=== PATIENT | male | born 1950 | race Caucasian/White ===

== ENCOUNTER 2016-08-20 08:00 | Outpatient (CLI) | payer MEDICARE, OTHER | END 2016-08-20 23:59 | DX: I10 Essential (primary) hypertension (principal) ==

== ENCOUNTER 2017-01-22 10:46 | Outpatient (CLI) | payer MEDICARE, OTHER ==
--- NOTE | 2017-01-22 12:43 | XRAY Report ---
TWO-VIEW CHEST: 01/22/2017 CLINICAL INDICATION: COPD. FINDINGS: Frontal and lateral views of the chest are compared to previous films of 09/16/2015. The cardiac silhouette is within normal limits. The lungs remain hyperinflated, compatible with COPD. N o new consolidation, effusion, or pneumothorax is present. IMPRESSION: COPD, BUT NO EVIDENCE OF ACUTE CARDIOPULMONARY DISEASE. JOB #: [id number] EXT JOB #:[id number]
== END 2017-01-22 10:47 | disposition home or self-care (01) ==
LOC: DI.N 10:46
PROVIDERS: ATTEND Internal Medicine Critical Care Medicine
DX: J44.9 Chronic obstructive pulmonary disease, unspecified (principal)
CPT/HCPCS: 71020

== ENCOUNTER 2018-02-20 13:51 | Outpatient (CLI) | payer MEDICARE, OTHER ==
[2018-02-20 19:19] LABS: ALBUMIN 4.3 g/dL (3.2-5.5); ALBUMIN/GLOBULIN RATIO 1.3 (1.0-2.2); ALKALINE PHOSPHATASE 67 IU/L (42-121); ALT ALANINE AMINOTRANSFERASE 16 IU/L (10-60); AST ASPARTATE AMINOTRANSFERASE 21 IU/L (10-42); BUN - BLOOD UREA NITROGEN 9 mg/dL (6-20); CALCIUM 9.6 mg/dL (8.5-10.3); CARBON DIOXIDE - CO2 32 mmol/L (21-32); CHLORIDE 92 mmol/L (101-111); CHOL/HDL RATIO 1.7 (<5.0); CHOLESTEROL 208 mg/dL; CREATININE 0.6 mg/dL (0.6-1.2); GFR - MDRD 134 (>89); GLUCOSE 111 mg/dL (70-100); HDL CHOLESTEROL 120 mg/dL; LDL CHOLESTEROL,CALCULATED 80 mg/dL; LDL/HDL RATIO 0.7 (<3.6); SODIUM 131 mmol/L (135-145); TOTAL PROTEIN 7.5 g/dL (6.7-8.2); VLDL CHOLESTEROL 8 mg/dL
[2018-02-20 19:25] LABS: BASOPHILS % (AUTO) 0.5 %; EOSINOPHILS # (AUTO) 0.1 10^3/uL (0.0-0.7); EOSINOPHILS % (AUTO) 1.3 %; HGB - HEMOGLOBIN 14.3 g/dL (14.0-18.0); LYMPHOCYTES # (AUTO) 1.2 10^3/uL (1.5-3.5); LYMPHOCYTES % (AUTO) 20.5 %; MEAN CORPUSCULAR HEMOGLOBIN 32.6 pg (27.0-31.0); MEAN CORPUSCULAR HGB CONC 33.5 g/dL (32.0-36.0); MEAN CORPUSCULAR VOLUME 97.4 fL (80.0-94.0); MEAN PLATELET VOLUME 7.1 fL (7.4-11.4); MONOCYTES # (AUTO) 0.5 10^3/uL (0.0-1.0); MONOCYTES % (AUTO) 9.1 %; NEUTROPHILS # (AUTO) 3.9 10^3/uL (1.5-6.6); NEUTROPHILS % (AUTO) 68.6 %; PLT - PLATELET COUNT 236 10^3/uL (130-450); RED BLOOD COUNT 4.39 10^6/uL (4.70-6.10); RED CELL DISTRIBUTION WIDTH 13.2 % (12.0-15.0); WHITE BLOOD COUNT 5.6 x10^3/uL (4.8-10.8)
[2018-02-21 12:17] LABS: HEPATITIS C ANTIBODY NON-REACTIVE (NON-REACTIVE)
== END 2018-02-20 13:52 | disposition home or self-care (01) ==
LOC: LAB.WCP 13:51
PROVIDERS: ATTEND Physician Assistant Medical
DX: I10 Essential (primary) hypertension (principal); Z12.5 Encounter for screening for malignant neoplasm of prostate; J44.9 Chronic obstructive pulmonary disease, unspecified; Z11.59 Encounter for screening for other viral diseases
CPT/HCPCS: 36415; 80053; 80061; 85025; 86803; G0103; 83721; 84153

== ENCOUNTER 2018-03-14 13:46 | Emergency (ER) | payer MEDICARE, OTHER ==
[2018-03-14] MEDS ORDERED: IPRATROPIUM/ALBUTEROL 3 ML NEB INH STA (14:29)
[2018-03-14] MEDS ORDERED: DEXAMETHASONE 10 MG/ML VIAL PO STA (14:29)
--- NOTE | 2018-03-14 14:35 | ED Physician Documentation ---
PD HPI DYSPNEA - Stated complaint Stated Complaint: COUGHING/MUCUS - Chief complaint Chief Complaint: Resp - History obtained from History obtained from: Patient - History of Present Illness Timing - details: Gradual onset Similar symptoms before: Diagnosis (History of similar symptoms with pneumonia.) - Additional information Additional information: The patient is a 67-year-old male with a history of oxygen dependent COPD, who presents with productive cough and fatigue that has been gradually progressing over the past week or two. He reports dyspnea, without chest pain. He denies fever, nausea or vomiting. He has a history of similar, but worse symptoms, about 2-1/2 years ago when he was hospitalized with pneumonia. He quit smoking cigarettes about 5 years ago. Review of Systems Constitutional: reports: Fatigue. denies: Fever Nose: denies: Congestion Throat: denies: Sore throat Cardiac: denies: Chest pain / pressure Respiratory: reports: Dyspnea, Cough GI: denies: Abdominal Pain, Nausea, Vomiting : denies: Dysuria Skin: denies: Rash Musculoskeletal: denies: Back pain, Extremity swelling Neurologic: denies: Focal weakness, Numbness, Headache PD PAST MEDICAL HISTORY - Past Medical History Past Medical History: No Cardiovascular: Hypertension Respiratory: COPD Neuro: None Endocrine/Autoimmune: None GI: None : Retention, Frequency HEENT: Other Psych: None Musculoskeletal: None - Past Surgical History Past Surgical History: No /POISER: Other HEENT: Cataracts, Tonsil/Adenoidectomy - Present Medications Home Medications: Ambulatory Orders Medication Instructions Recorded Confirmed Albuterol Sulfate [Proair Hfa] 8.5 gm IH Q6H PRN 08/13/15 08/29/15 Carvedilol [Coreg] 6.25 mg PO BID 08/13/15 08/29/15 Fluticasone/Salmeterol 250/50 1 puffs INH BID 08/13/15 08/29/15 [Advair 250 Mcg/50 Mcg] Furosemide 20 mg PO BID 08/13/15 08/29/15 Lisinopril [Zestril] 40 mg PO DAILY 08/13/15 08/29/15 Potassium Chloride [Micro-K] 10 meq PO BIDWM 08/13/15 08/29/15 dilTIAZem HCl [Diltiazem 24Hr ER] 360 mg PO DAILY 08/13/15 08/29/15 Azithromycin [Zithromax] 250 mg PO DAILY #6 tablet 03/14/18 predniSONE [Prednisone] 30 mg PO DAILY #15 tablet 03/14/18 - Allergies Allergies/Adverse Reactions: Allergies Allergy/AdvReac Type Severity Reaction Status Date / Time No Known Drug Allergies Allergy Verified 03/14/18 13:56 - Social History Does the pt smoke?: No Smoking Status: Never smoker Does the pt drink ETOH?: Yes Does the pt have substance abuse?: No - Immunizations Immunizations are current?: Yes - POLST Patient has POLST: No PD ED PE NORMAL - Vitals Vital signs reviewed: Yes (Borderline systolic hypertension.) - General General: Alert and oriented X 3, Other (Body habitus of COPD, as well as dusky nose.) - HEENT HEENT: Atraumatic, Pharynx benign - Neck Neck: No adenopathy, No JVD - Cardiac Cardiac: RRR - Respiratory Respiratory: Other (Decreased breath sounds bilaterally, with prolonged exp iratory phase.) - Abdomen Abdomen: Soft, Non tender - Back Back: No CVA TTP - Derm Derm: No rash - Extremities Extremities: No edema - Neuro Neuro: Alert and oriented X 3, No motor deficit, Normal speech Results - Vitals Vitals: Oxygen O2 Source [] Nasal cannula O2 Source Nasal cannula Oxygen Flow Rate 4 - Labs Labs: Laboratory Tests 03/14/18 03/14/18 14:55 14:55 WBC 6.9 RBC 3.98 L Hgb 13.4 L Hct 37.6 L MCV 94.7 H MCH 33.7 H MCHC 35.6 RDW 13.0 Plt Count 220 MPV 6.6 L Neut # (Auto) 5.3 Lymph # (Auto) 0.7 L [place] # (Auto) 0.9 Eos # (Auto) 0.0 Baso # (Auto) 0.0 Absolute Nucleated RBC 0.00 Nucleated RBC % 0.0 Sodium 126 L Potassium 4.3 Chloride 86 L Carbon Dioxide 31 Anion Gap 9.0 BUN 11 Creatinine 0.5 L Estimated GFR (MDRD) 165 Glucose 112 H Calcium 9.1 Total Bilirubin 0.7 AST 20 ALT 15 Alkaline Phosphatase 74 Total Protein 7.4 Albumin 3.8 Globulin 3.6 Albumin/Globulin Ratio 1.1 Lipase 20 L - Rads (name of study) CXR Radiology: Prelim report reviewed, EMP read contemporaneously, See rad report (Hyperinflated lungs, consistent with emphysematous COPD. No acute findings.) PD MEDICAL DECISION MAKING - ED course Complexity details: reviewed old records, reviewed results, re-evaluated patient, considered differential, d/w patient, d/w family ED course: The patient's presentation is most consistent with an acute exacerbation of COPD. Chest x-ray does not reveal evidence of pneumonia, and his white blood cell count is normal. Treatment in the emergency department included administration of DuoNeb nebulizer and Decadron 10 mg orally. His air movement improved with the above treatment. He is being discharged with prescription for Zithromax and prednisone. I discussed with him and his outpatient treatment and follow- up, as well as potentially worrisome signs or symptoms that should prompt re evaluation in the emergency department. Departure - Departure Disposition: 01 Home, Self Care Clinical Impression: COPD exacerbation Condition: Stable Instructions: ED COPD Flare Follow-Up: Selene Gunn MD [Primary Care Provider] - Chantell Feldman PA-C [Provider Admit Priv/Credential] - Prescriptions: Azithromycin [Zithromax] 250 mg PO DAILY #6 tablet predniSONE [Prednisone] 30 mg PO DAILY #15 tablet Comments: Continue using your nebulizer and inhaler as previously prescribed. Take prednisone as prescribed for the next 5 days. Take Zithromax daily as prescribed. Follow-up with your primary physician within 1 week. Call to schedule appointment. Return to the emergency department if increasing difficulty breathing, or otherwise worsening symptoms. Discharge Date/Time: 03/14/18 15:43
--- NOTE | 2018-03-14 14:58 | XRAY Report ---
Reason: cough and dyspnea Procedure Date: 03/14/2018 Accession Number: [id number] / [id number] Procedure: XR - Chest 2 View X-Ray CPT Code: 10894 FULL RESULT: EXAM: CHEST RADIOGRAPHY EXAM DATE: 03/14/2018 02:43 PM. CLINICAL HISTORY: Cough and shortness of breath. COMPARISON: CHEST 2 VIEW PA/LAT 09/09/2015 7:53 AM. TECHNIQUE: 2 views. FINDINGS: Lungs/Pleura: Lungs are hyperinflated but clear. There is no effusion, pneumothorax, or vascular congestion. Mediastinum: Heart and mediastinal contours are notable for aortic calcification. Other: None. IMPRESSION: No acute findings. Hyperinflated lungs related to COPD changes again seen. RADIA
[2018-03-14 15:00] LABS: BASOPHILS % (AUTO) 0.4 %; EOSINOPHILS % (AUTO) 0.6 %; HGB - HEMOGLOBIN 13.4 g/dL (14.0-18.0); LYMPHOCYTES # (AUTO) 0.7 10^3/uL (1.5-3.5); LYMPHOCYTES % (AUTO) 9.6 %; MEAN CORPUSCULAR HEMOGLOBIN 33.7 pg (27.0-31.0); MEAN CORPUSCULAR HGB CONC 35.6 g/dL (32.0-36.0); MEAN CORPUSCULAR VOLUME 94.7 fL (80.0-94.0); MEAN PLATELET VOLUME 6.6 fL (7.4-11.4); MONOCYTES # (AUTO) 0.9 10^3/uL (0.0-1.0); MONOCYTES % (AUTO) 12.4 %; NEUTROPHILS # (AUTO) 5.3 10^3/uL (1.5-6.6); PLT - PLATELET COUNT 220 10^3/uL (130-450); RED BLOOD COUNT 3.98 10^6/uL (4.70-6.10); WHITE BLOOD COUNT 6.9 x10^3/uL (4.8-10.8)
[2018-03-14 15:31] VITALS: BP 136/56
[2018-03-14 15:52] LABS: ALBUMIN 3.8 g/dL (3.2-5.5); ALBUMIN/GLOBULIN RATIO 1.1 (1.0-2.2); BILIRUBIN,TOTAL 0.7 mg/dL (0.2-1.0); CALCIUM 9.1 mg/dL (8.5-10.3); CREATININE 0.5 mg/dL (0.6-1.2); TOTAL PROTEIN 7.4 g/dL (6.7-8.2)
== END 2018-03-14 15:43 | disposition home or self-care (01) ==
LOC: ED 13:46
DX: J44.1 Chronic obstructive pulmonary disease with (acute) exacerbation (principal); Z99.81 Dependence on supplemental oxygen; I10 Essential (primary) hypertension
CPT/HCPCS: 36415; 71046; 80053; 83690; 85025; 94640; 99283

== ENCOUNTER 2020-02-07 09:24 | Outpatient (CLI) | payer MEDICARE, OTHER | END 2020-02-07 09:25 | disposition critical access hospital (66) | LOC: EMS 09:24 | PROVIDERS: ATTEND Surgery | DX: R06.03 Acute respiratory distress (principal) | CPT/HCPCS: A0425; A0427 ==

== ENCOUNTER 2020-02-07 10:09 | Inpatient (IN) | payer MEDICARE, OTHER ==
[2020-02-07] MEDS ORDERED: SODIUM CHLORIDE 0.9% 1,000 ML IV STA (10:19)
[2020-02-07] MEDS ORDERED: MORPHINE 2 MG/ML CARPUJECT IVP STA (10:20)
[2020-02-07] MEDS ORDERED: MAGNESIUM SULFATE 2 GRAM 2 GM/50 ML BAG IV ONE (10:20)
[2020-02-07] MEDS ORDERED: IPRATROPIUM/ALBUTEROL 3 ML NEB INH STA (10:21)
[2020-02-07] MEDS ORDERED: DEXAMETHASONE 10 MG/ML VIAL IVP STA (10:21)
[2020-02-07 10:36] LABS: BASOPHILS # (AUTO) 0.1 10^3/uL (0.0-0.1); BASOPHILS % (AUTO) 0.4 %; EOSINOPHILS # (AUTO) 0.5 10^3/uL (0.0-0.7); EOSINOPHILS % (AUTO) 2.7 %; HGB - HEMOGLOBIN 12.7 g/dL (14.0-18.0); LYMPHOCYTES # (AUTO) 1.2 10^3/uL (1.5-3.5); LYMPHOCYTES % (AUTO) 6.3 %; MEAN CORPUSCULAR HEMOGLOBIN 33.2 pg (27.0-31.0); MEAN CORPUSCULAR VOLUME 94.8 fL (80.0-94.0); MEAN PLATELET VOLUME 8.8 fL (7.4-11.4); MONOCYTES # (AUTO) 1.7 10^3/uL (0.0-1.0); MONOCYTES % (AUTO) 9.4 %; NEUTROPHILS # (AUTO) 14.7 10^3/uL (1.5-6.6); NEUTROPHILS % (AUTO) 80.4 %; PLT - PLATELET COUNT 291 10^3/uL (130-450); RED BLOOD COUNT 3.83 10^6/uL (4.70-6.10); RED CELL DISTRIBUTION WIDTH 11.7 % (12.0-15.0); WHITE BLOOD COUNT 18.3 x10^3/uL (4.8-10.8)
[2020-02-07] MEDS ORDERED: cefTRIAXone 1 GM VIAL IVP STA (10:46)
[2020-02-07] MEDS ORDERED: AZITHROMYCIN INJ 500 MG in SODIUM CHLORIDE 0.9% 250 ML IV STA (10:47)
[2020-02-07 10:50] LABS: ALBUMIN 3.9 g/dL (3.2-5.5); BILIRUBIN,TOTAL 1.5 mg/dL (0.2-1.0); CALCIUM 9.6 mg/dL (8.5-10.3); CREATININE 0.9 mg/dL (0.6-1.2); MAGNESIUM 1.9 mg/dL (1.7-2.8); TOTAL PROTEIN 7.8 g/dL (6.7-8.2)
[2020-02-07 10:59] LABS: PLATELET ESTIMATE, MANUAL NORMAL (130-450,000) (NORMAL); PLATELET MORPHOLOGY NORMAL APPEARANCE (NORMAL); RBC MORPHOLOGY (MULTIPLE) NORMAL APPEARANCE (NORMAL)
--- NOTE | 2020-02-07 10:59 | XRAY Report ---
PROCEDURE: Chest 1 View X-Ray INDICATIONS: chest pain TECHNIQUE: One view of the chest was acquired. COMPARISON: 03/14/2018, 08/17/2017, 01/22/2017. FINDINGS: Surgical changes and devices: None. Lungs and pleura: There is persistent blunting of the costophrenic angles, which is attributed to sca rring. There is mild generalized interstitial prominence seen within the right lung. No pneumothorax is seen. The lungs are hyperexpanded. Mediastinum: The aorta is prominent and tortuous. The cardiac contours are within normal limits. Bones and chest wall: No suspicious bony lesions. Age-appropriate degenerative changes are seen. Overlying soft tissues appear unremarkable. IMPRESSION: Diffuse interstitial prominence is seen on the right side. Please consider infection. Asymmetric pulm onary edema or inflammatory change are considered to be less likely. Hyperexpanded lungs. Reviewed by: Hermes Street MD on 02/07/2020 9:58 AM [facility] Approved by: Hermes Street MD on 02/07/2020 9:58 AM [facility] Station ID: [id number]
[2020-02-07 11:05] LABS: ABG HCO3 31.5 mmol/L (22.0-26.0); ABG PO2 68 mmHg (80-100)
[2020-02-07 11:06] LABS: ABG BASE EXCESS 0.8 mmol/L (-2.0-3.0); ABG OXYGEN SATURATION 90 % (94-98); ABG TCO2 34.1 MMOL/L (21.0-29.0); ALLEN TEST POSITIVE
[2020-02-07 11:07] LABS: ABG PCO2 86 mmHg (34-45); ABG PH 7.18 (7.35-7.45)
[2020-02-07] MEDS ORDERED: oxyCODONE 5 MG TABLET PO PRN (11:21)
[2020-02-07] MEDS ORDERED: SODIUM CHLORIDE FLUSH 0.9% 10 ML SYRINGE IVP PRN (11:21)
[2020-02-07] MEDS ORDERED: ONDANSETRON ODT 4 MG TABLET TL PRN (11:21)
[2020-02-07] MEDS ORDERED: ACETAMINOPHEN 325 MG TABLET PO PRN (11:21)
[2020-02-07] MEDS ORDERED: ONDANSETRON 4 MG/2 ML VIAL IVP PRN (11:21)
[2020-02-07] MEDS ORDERED: ALBUTEROL NEB 2.5 MG/3 ML INH PRN (11:24)
--- NOTE | 2020-02-07 11:26 | ED Physician Documentation ---
PD HPI DYSPNEA - Stated complaint Stated Complaint: SOA - Chief complaint Chief Complaint: Resp - History obtained from History obtained from: Patient, Family, EMS - History of Present Illness Timing - onset: How many days ago (He has had several days to a week of progressively worsening dyspnea with some cough and worsened wheezing. History of COPD. Increased his home oxygen from 3.5-5. Denies sputum production per se. Had significantly worse symptoms overnight into today.) Timing - onset during: Rest, Light activity Timing - duration: Days (several days to a week, with significant worsening since yesterday.) Timing - details: Gradual onset, Still present Inciting event(s): URI, Exposure (ie smoke) (environmental poor air quality.), Other (COPD) Improved by: O2, Inhaler/neb Associated symptoms: Cough, Wheezing, Chest pain / discomfort, Anxiety. No: Fever, Palpitations, Bilateral edema Similar symptoms before: Diagnosis (COPD exacerbations) Recently seen: Not recently seen Review of Systems Constitutional: reports: Myalgias. denies: Fever, Chills Nose: reports: Congestion. denies: Rhinorrhea / runny nose Throat: denies: Sore throat Cardiac: reports: Chest pain / pressure. denies: Palpitations, Pedal edema, Calf pain Respiratory: reports: Dyspnea, Cough, Wheezing. denies: Hemoptysis GI: denies: Abdominal Pain, Nausea, Vomiting, Diarrhea Neurologic: reports: Generalized weakness. 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: Other HEENT: Cataracts, Tonsil/Adenoidectomy - Present Medications Home Medications: Ambulatory Orders Medication Instructions Recorded Confirmed Albuterol Sulfate [Proair Hfa] 2 - 4 inh IH Q6H PRN 08/13/15 02/07/20 Carvedilol [Coreg] 6.25 mg PO BID 08/13/15 02/07/20 Fluticasone/Salmeterol 250/50 1 puffs INH BID 08/13/15 02/07/20 [Advair 250 Mcg/50 Mcg] Furosemide 20 mg PO BID 08/13/15 02/07/20 Lisinopril [Zestril] 40 mg PO DAILY 08/13/15 02/07/20 Potassium Chloride [Micro-K] 10 meq PO BIDWM 08/13/15 02/07/20 dilTIAZem HCl [Diltiazem 24Hr ER] 360 mg PO DAILY 08/13/15 02/07/20 Aclidinium [place] [Tudorza 1 inh PO DAILY 02/07/20 02/07/20 Pressair] Levalbuterol [Xopenex] 1 inh NEB Q6H PRN 02/07/20 02/07/20 predniSONE [Prednisone] 30 mg PO DAILY PRN 02/07/20 02/07/20 - Allergies Allergies/Adverse Reactions: Allergies Allergy/AdvReac Type Severity Reaction Status Date / Time No Known Drug Allergies Allergy Verified 02/07/20 10:21 - Social History Does the pt smoke?: No Smoking Status: Never smoker Does the pt drink ETOH?: Yes Does the pt have substance abuse?: No - Immunizations Immunizations are current?: Yes - POLST Patient has POLST: No PD ED PE NORMAL - Vitals Vital signs reviewed: Yes - General General: Well developed/nourished, Other (Thin and decreased muscle mass general ly. He has prolonged expiratory phase and work of breathing. He does appear anxious.) - HEENT HEENT: Atraumatic, Pharynx benign. No: Moist mucous membranes - Neck Neck: Supple, no meningeal sign, No adenopathy - Cardiac Cardiac: RRR, No murmur - Respiratory Respiratory: Other (Is and prolonged expiratory phase. Some coarse sounds on the right. Accessory muscle use and tachypnea.) - Abdomen Abdomen: Soft, Non tender - Male Male : Deferred - Rectal Rectal: Deferred - Back Back: No CVA TTP - Derm Derm: Normal color, Warm and dry - Extremities Extremities: No tenderness to palpate, Normal ROM s pain, No edema, No calf tenderness / cord - Neuro Neuro: Alert and oriented X 3, No motor deficit. No: Normal speech (few word conversational dyspnea. ) Results - Vitals Vitals: Vital Signs - 24 hr 02/07/20 02/07/20 02/07/20 10:10 10:24 10:27 Temperature 36.2 C L Heart Rate 94 96 92 Respiratory 28 H Rate Blood Pressure 158/66 H O2 Saturation 93 02/07/20 02/07/20 02/07/20 10:33 11:29 11:30 Temperature 36.2 C L Heart Rate 84 79 79 Respiratory 18 18 Rate Blood Pressure O2 Saturation 93 Oxygen O2 Source [With Activity] Nasal cannula O2 Source BIPAP - EKG (time done) 10:12 Rate: Rate (enter#) (91) Rhythm: NSR [employer]: Normal Intervals: Normal NC QRS: Normal Ischemia: Normal ST segments, Non specific changes. No: ST elevation c/w ischemia, ST depression - Labs Labs: Laboratory Tests 02/07/20 02/07/20 02/07/20 10:30 10:30 10:30 WBC 18.3 H RBC 3.83 L Hgb 12.7 L Hct 36.3 L MCV 94.8 H MCH 33.2 H MCHC 35.0 RDW 11.7 L Plt Count 291 MPV 8.8 Neut # (Auto) 14.7 H Lymph # (Auto) 1.2 L [place] # (Auto) 1.7 H Eos # (Auto) 0.5 Baso # (Auto) 0.1 Absolute Nucleated RBC 0.00 Nucleated RBC % 0.0 Manual Slide Review Indicated WBC Morphology Platelet Estimate NORMAL (130-450,000) Platelet Morphology NORMAL APPEARANCE RBC Morph Micro Appear NORMAL APPEARANCE Bld Gas Analysis Time Sample Site ABG pH ABG pCO2 ABG pO2 ABG HCO3 ABG Total CO2 ABG O2 Saturation ABG Base Excess Mykel Test O2 Delivery Device FiO2 EPAP IPAP Sodium 122 L Potassium 4.4 Chloride 73 L* Carbon Dioxide 35 H Anion Gap 14.0 H BUN 32 H Creatinine 0.9 Estimated GFR (MDRD) 83 L Glucose 107 H Calcium 9.6 Magnesium 1.9 Total Bilirubin 1.5 H AST 21 ALT 19 Alkaline Phosphatase 61 B-Natriuretic Peptide 59 Total Protein 7.8 Albumin 3.9 Globulin 3.9 Albumin/Globulin Ratio 1.0 Lipase 20 L 02/07/20 11:00 WBC RBC Hgb Hct MCV MCH MCHC RDW Plt Count MPV Neut # (Auto) Lymph # (Auto) [place] # (Auto) Eos # (Auto) Baso # (Auto) Absolute Nucleated RBC Nucleated RBC % Manual Slide Review WBC Morphology Platelet Estimate Platelet Morphology RBC Morph Micro Appear Bld Gas Analysis Time 1100 Sample Site LEFT BRACHIAL ABG pH 7.18 L* ABG pCO2 86 H* ABG pO2 68 L ABG HCO3 31.5 H ABG Total CO2 34.1 H ABG O2 Saturation 90 L ABG Base Excess 0.8 Mykel Test POSITIVE O2 Delivery Device BiPAP FiO2 35.00 EPAP 5 IPAP 12 Sodium Potassium Chloride Carbon Dioxide Anion Gap BUN Creatinine Estimated GFR (MDRD) Glucose Calcium Magnesium Total Bilirubin AST ALT Alkaline Phosphatase B-Natriuretic Peptide Total Protein Albumin Globulin Albumin/Globulin Ratio Lipase - Rads (name of study) chest xray Radiology: Prelim report reviewed (Sided interstitial infiltrate consistent with pneumonia), See rad report PD MEDICAL DECISION MAKING - ED course Complexity details: reviewed results, re-evaluated patient (Having improved work of breathing but does not seem to be tiring. Respiratory rate and depth is seems adequate. He remains on the BiPAP. Sats are good. Can increase inspiratory pressure since ABG is abnormal. ), considered differential, d/w patient ED course: I affirmed with the patient DNR/DNI. He is okay with BiPAP. He did express some potential preference for [facility] but I told him he is somewhat unstable at this point and [facility] is not a higher level of care per se so I asked if he was okay staying here and he said yes he is. - Critical Care Time Includes: Direct patient care, Reassess patient, Document care, Medical consult Data interpretation: Labs, Pulse ox, ABG, CXR Procedures excluded from critical care time: EKG Departure - Departure Disposition: 66 [facility] DC/Xfer Clinical Impression: Acute pneumonia, COPD exacerbation, Respiratory distress Dyspnea Qualifiers: Dyspnea type: shortness of breath Qualified Code(s): R06.02 - Shortness of breath Condition: Stable Record reviewed to determine appropriate education?: Yes Discharge Date/Time: 02/07/20 12:17
[2020-02-07] MEDS ORDERED: ALBUTEROL NEB 2.5 MG/3 ML INH STA (11:30)
[2020-02-07] MEDS ORDERED: LACTATED RINGERS 1,000 ML IV SCH (12:00)
[2020-02-07] MEDS ORDERED: IPRATROPIUM 0.2 MG/ML NEB INH SCH (13:00)
--- NOTE | 2020-02-07 13:11 | PHARMACY PROGRESS NOTE ---
- Best Possible Medication History Admit Date and Time: 02/07/20 1138 Processed by: Pharmacy Medication History completed: Yes Patient Interview: Completed Secondary Source(s): Other family member (PATIENT UNABLE TO CONFIRM HOME MEDICATIONS. PATIENT'S CAREGIVER HAD LIST/MEDICATION INSERTS. ), Pharmacy records, Insurance records (PATIENT'S CAREGIVER HAD MEDICATION LIST. MEDICATION RECONCILIATION DONE USING HOME LIST/ MED INSERTS ) As the person ultimately responsible for medication therapy, providers are able to order a medication from an existing home medication list in [facility] via the "Reconcile Routine" prior to Confirmation of that medication by supportability engineer. Such practice is discouraged except when the physician, in their clinical judgment, deems that a medical need exists for a medication without regard to previous use.
[2020-02-07 13:50] LABS: ABG BASE EXCESS 1.7 mmol/L (-2.0-3.0); ABG HCO3 31.9 mmol/L (22.0-26.0); ABG OXYGEN SATURATION 92 % (94-98); ABG PH 7.21 (7.35-7.45); ABG PO2 73 mmHg (80-100); ABG TCO2 34.5 MMOL/L (21.0-29.0); ALLEN TEST POSITIVE
[2020-02-07 13:53] LABS: ABG PCO2 83 mmHg (34-45)
[2020-02-07] MEDS: IPRATROPIUM/ALBUTEROL 3 ML NEB INH SCH ×2 (15:08→20:07)
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
[2020-02-07] MEDS ORDERED: SODIUM CHLORIDE FLUSH 0.9% 10 ML SYRINGE IVP SCH (17:00)
[2020-02-07] MEDS ORDERED: SACCHAROMYCES BOULARDII 250 MG CAPSULE PO SCH (17:00)
[2020-02-07] MEDS: methylPREDNISolone SUCCINATE 40 MG/ML VIAL IVP SCH ×2 (17:02→21:23)
[2020-02-07 17:36] LABS: ABG BASE EXCESS 3.6 mmol/L (-2.0-3.0); ABG HCO3 33.5 mmol/L (22.0-26.0); ABG PH 7.22 (7.35-7.45); ABG PO2 73 mmHg (80-100); ABG TCO2 36.1 MMOL/L (21.0-29.0)
[2020-02-07 17:37] LABS: ABG OXYGEN SATURATION 93 % (94-98); ALLEN TEST POSITIVE
[2020-02-07 17:39] LABS: ABG PCO2 83 mmHg (34-45)
[2020-02-07] MEDS ORDERED: BUDESONIDE 0.5 MG/2 ML NEB INH SCH (19:00)
[2020-02-07] MEDS ORDERED: FORMOTEROL FUMARATE NEB 20 MCG/2 ML INH SCH (19:00)
[2020-02-07] MEDS ORDERED: FAMOTIDINE 20 MG/2 ML SYRINGE IVP SCH (21:00)
[2020-02-07] MEDS ORDERED: CHLORHEXIDINE GLUCONATE 15 ML UDC PO SCH (21:00)
[2020-02-07 21:16] LABS: ABG BASE EXCESS 3.5 mmol/L (-2.0-3.0); ABG HCO3 32.4 mmol/L (22.0-26.0); ABG OXYGEN SATURATION 94 % (94-98); ABG PH 7.27 (7.35-7.45); ABG PO2 75 mmHg (80-100); ABG TCO2 34.6 MMOL/L (21.0-29.0); ALLEN TEST POSITIVE
[2020-02-07 21:18] LABS: ABG PCO2 73 mmHg (34-45)
--- NOTE | 2020-02-07 22:27 | Discharge Plan ---
Discharge Plan Problem Reviewed?: Yes Disposition: 02 Transfer Acute Care Hosp Condition: Stable Diet: Cardiac Activity Restrictions: Activity as Tolerated Health Concerns: Acute on chronic respiratory failure End-stage COPD COPD exacerbation Acute pneumonia Hypertension Hyponatremia Severe malnutrition Plan of Treatment: Your initial carbon dioxide level was 86. The last ABG check before the transfer to [facility] showed a carbon dioxide level of 73. You have been maintained on a BiPAP throughout today. You have also been receiving breathing treatments with DuoNeb and albuterol. As well as IV steroids. You were also treated with Rocephin and azithromycin for pneumonia. We continued your antihypertensives which included carvedilol, diltiazem, lisinopril and Lasix. At the request of family you are being transferred to [facility] in [facility] for continued treatment. Assessment: Your initial carbon dioxide level was 86. The last ABG check before the transfer to [facility] showed a carbon dioxide level of 73. You have been maintained on a BiPAP throughout today. You have also been receiving breathing treatments with DuoNeb and albuterol. As well as IV steroids. You were also treated with Rocephin and azithromycin for pneumonia. We continued your antihypertensives which included carvedilol, diltiazem, lisinopril and Lasix. At the request of family you are being transferred to [facility] in [facility] for continued treatment. No Smoking: If you smoke, Please STOP! Call for help. Follow-up with: Chantell Feldman PA-C [Primary Care Provider] -
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
[2020-02-07 23:36] VITALS: BP 168/85
[2020-02-08] MEDS ORDERED: cefTRIAXone 1 GM in SODIUM CHLORIDE 0.9% MINIBAG 100 ML IV SCH (09:00)
[2020-02-08] MEDS ORDERED: AZITHROMYCIN INJ 500 MG in SODIUM CHLORIDE 0.9% 250 ML IV SCH (09:00)
== END 2020-02-08 | disposition short-term general hospital (02) | DRG 189 ==
LOC: EDUNIT# → ED 10:09 → ICU 11:38
PROVIDERS: ADMIT Specialist; ATTEND Internal Medicine
DX: J96.22 Acute and chronic respiratory failure with hypercapnia (principal); J18.9 Pneumonia, unspecified organism; E43 Unspecified severe protein-calorie malnutrition; R06.03 Acute respiratory distress; J44.0 Chronic obstructive pulmonary disease with (acute) lower respiratory infection; E87.1 Hypo-osmolality and hyponatremia; J44.1 Chronic obstructive pulmonary disease with (acute) exacerbation; J96.21 Acute and chronic respiratory failure with hypoxia; I10 Essential (primary) hypertension; N40.1 Benign prostatic hyperplasia with lower urinary tract symptoms; R33.9 Retention of urine, unspecified; R35.0 Frequency of micturition; F13.1 Sedative, hypnotic or anxiolytic-related abuse; F10.182 Alcohol abuse with alcohol-induced sleep disorder; Z66 Do not resuscitate; Z79.51 Long term (current) use of inhaled steroids; Z79.899 Other long term (current) drug therapy; Z68.21 Body mass index [BMI] 21.0-21.9, adult; Z99.81 Dependence on supplemental oxygen; Z79.2 Long term (current) use of antibiotics; Z87.891 Personal history of nicotine dependence
CPT/HCPCS: 36415; 36600; 71045; 80053; 82803; 83690; 83735; 83880; 85025; 87040; 87150; 94640; 94660; 96365; 96375; 99285; 99291; A9270; J7120; J7626; 80048